=== PATIENT | male | born 1950 | race Caucasian/White ===

== ENCOUNTER 2018-12-31 05:39 | Inpatient (IN) | payer MEDICARE, BC ==
[~2018-12-31] VITALS: Ht 157.5 cm; Wt 86.6 kg
[2018-12-31] VITALS (27 sets, daily range): BP systolic 99–154; BP diastolic 49–107; PULSE 56–68; RESP 8–19; Ht 157.5 cm; Wt 86.6 kg
[2018-12-31] MEDS ORDERED: METO-335 PO (06:37)
[2018-12-31] MEDS ORDERED: ASPI-903 PO (06:37)
[2018-12-31] MEDS ORDERED: ATOR20TA38 PO (06:37)
[2018-12-31] MEDS ORDERED: METF-849 PO (06:39)
[2018-12-31] MEDS ORDERED: VERAPAMIL 5 MG INJ ONE (06:54)
[2018-12-31] MEDS ORDERED: NITROGLYCERIN (IC) 100 MCG/ML INJ ONE (06:54)
[2018-12-31] MEDS ORDERED: LIDOCAINE 1% (MDV) 20 ML INJ ONE (06:54)
[2018-12-31] MEDS ORDERED: IODIXANOL LOCM 100 ML BTL ONE ×2 (06:54→11:19)
[2018-12-31] MEDS ORDERED: HEPARIN 1000 UNITS/ML 10 ML INJ ONE (06:54)
[2018-12-31] MEDS ORDERED: MIDAZOLAM 1 MG/ML 2 ML INJ ONE (07:24)
[2018-12-31] MEDS ORDERED: BIVALIRUDIN 250MG /NS 50 ML 50 ML IVPB ONE ×2 (07:51→08:39)
[2018-12-31] MEDS ORDERED: ADENOSINE 30 ML ONE (07:54)
[2018-12-31] MEDS ORDERED: TICAGRELOR 90 MG TABLET ONE (08:08)
[2018-12-31] MEDS ORDERED: ASPIRIN 325 MG TAB ONE (08:09)
[2018-12-31] MEDS ORDERED: FENTAnyl 50 MCG/ML VIAL ONE (08:58)
[2018-12-31] MEDS ORDERED: ACETAMINOPHEN 325 MG TAB PO PRN (09:00)
--- NOTE | 2018-12-31 09:12 | OPR ---
Date/Time of Note Date/Time of Note DATE: 12/31/18 TIME: 09:03 Operative Report Procedure Date: Dec 31, 2018 Preoperative Diagnosis CAD, abnormal stress test and cardiac CTA Postoperative Diagnosis same, s/p PCI LAD Operation/Procedure Performed see details Surgeon see signature line Machine Finisher none Anesthesia Type: moderate sedation Estimated Blood Loss: minimal Transfusion none Specimen none Grafts/Implants none Complications none Procedure Description Procedure Date:12/31/2018 Financial Services Intern/surgeon: Bal Lowery MD. Procedures Performed: 1)Left heart catheterization with selective left and right coronary angiography. 2)iFR and FFR of the ostial/prox LAD 3)Balloon angioplasty and stenting of the ostial-prox LAD with a Synergy 3.0 x 12 and Synergy 3.0 x 8 stents. Pre-operative Diagnosis:PVCs, abnormal stress echo and cardiac CTA Post-operative Diagnosis:same s/p PCI of LAD Indications: 68 yo M with DM and smoking history who was referred for frequent PVCs. Stress echo showed abnormal septal motion at peak and cardiac CTA showed 80% ostial- prox LAD disease. Description of Procedure: After informed consent, the patient was brought to the cardiac catheterization lab. The procedure site was prepped and draped in usual manner. The patient was premedicated with versed 1 mg and fentanyl 50 mcg. 3 mL lidocaine was injected into the right wrist. Next using the posterior wall technique, the 6/5 montenegrin sheath was inserted into the right radial artery. Next using the JL3.5 and JR4, selective angiography of the left and right coronary arteries were obtained. The decision was made to proceed with iFR of the LAD. A 6 montenegrin JL 3.5 guide was advanced and engaged into the left coronary artery. After appropriate anticoagulation was given, the iFR angioplasty wire was normalized in the left main and advanced past the LAD lesion. Next the iFR was measured at 0.89, 0.90, 0.91. As there was discrepancy and borderline readings, the decision was made to give adenosine and check FFR. FFR was measured at 0.67. The decision was made to direct stent the lesion. Subsequently, the Synergy 3.0 x 12 stent was advanced to the lesion. Unfortunately there was significant motion of the catheter and stent with breathing and despite breath holding, the stent advanced forward during deployment and only part of the lesion was stented. Next the Synergy 3.0 x 8 stent was advanced and deployed overlapping with the first stent. Next the stent was post dilated with the 3.25 X 8 noncompliant balloon times 4 at a maximum of 12 gladys. Final angiography revealed GLENNY 3 flow, no edge dissection, and appropriate stent expansion. There was some haziness in the mid vessel several mm after the stent which upon review of diagnostic images was present. 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 Flow was unchanged at the end of the case, the pt was completely asymptomatic and there were no EKG changes. Next all equipment was removed and hemostasis was achieved by TR band. Findings: Anatomy/Hemodynamics: Overall slow flow in all vessels likely due to active smoking and DM Left main:normal LAD:ostial to prox 60% lesion followed by an aneurysmal segment Diagonal:small vessel with diffuse disease Circumflex:luminal irregularities Obtuse marginal:luminal irregularities RCA:proximal aneurysmal segment, otherwise 20-30% plaque PDA:luminal irregularities PLV: mid 50-60% in a smaller vessel Contrast used: 160 mL Fluoroscopy time:12.3 min Medications used: Versed 1 Fentanyl 50 Radial cocktail: heparin 3000 units, NTG 200mcg, verapamil 2.5mg Adenosine drip Angiomax Brilinta 180mg ASA 325mg Equipment used: 6 montenegrin JL 3.5 guide iFR angioplasty wire Synergy 3.0 x 12 and 3.0 x 8 overlapping drug eluting stents 3.25 x 8noncompliant balloon Estimated blood loss<10 mL. Specimen: none Grafts/implants: none Complications: none Assessment: CAD: s/p PCI of ostial-prox LAD due to positive iFR/FFR. Residual intermediate PL disease to be managed medically PVCs Smoker DM Plan: -ASA 81mg indefinitely -Brilinta at least 6 months, preferably longer as high risk territory -lipitor -metoprolol succ 25mg daily for PVCs BAL LOWERY Dec 31, 2018 09:12
[2018-12-31] MEDS: METOPROLOL (XL) 25 MG TAB PO SCH (09:45)
[2018-12-31] MEDS: SOD CHLORIDE 0.9% 1,000 ML IV SCH ×2 (10:53→22:00)
[2018-12-31] MEDS ORDERED: IOHEXOL 350MG/ML 50 ML BTL ONE (11:19)
[2018-12-31] MEDS: INSULIN ASPART [NOVOLOG] 3 ML PEN SC SCH ×3 (12:00→21:00)
[2018-12-31] MEDS ORDERED: GLUCAGON 1 MG INJ IM PRN (12:30)
[2018-12-31] MEDS ORDERED: GLUCOSE GEL 15 GRAM TUBE PO PRN ×2 (12:30)
[2018-12-31] MEDS ORDERED: GLUCOSE GEL 15 GRAM TUBE BUCCAL PRN (12:30)
[2018-12-31] MEDS ORDERED: DEXTROSE 50% 50 ML SYRINGE IV PRN ×2 (12:30)
[2018-12-31] MEDS: FAMOTIDINE 20 MG TAB PO SCH (12:41)
--- NOTE | 2018-12-31 16:30 | HP ---
DATE OF ADMISSION: 12/31/2018 CHIEF COMPLAINT: Coronary artery disease. HISTORY OF PRESENT ILLNESS: This is a 68-year-old male with past medical history of hypertension, hi story of coronary artery disease who was brought in to [facility] to undergo cardia c catheterization. The patient had an abnormal stress test and cardiac CT angio which was done by ca rdiologist, Dr. Lowery. As a result, the patient was brought in, underwent cardiac catheterizati on and had PCI of his left anterior descending. Following the procedure, the patient was transferred to the intensive care unit for observation. Upon my evaluation, the patient at this time is currently stable. Denies any chest pain, fevers, chi lls, nausea, vomiting, no shortness of breath. PAST MEDICAL HISTORY: History of hypertension, history of coronary artery disease, prediabetes and d yslipidemia. ALLERGIES: No known drug allergies. FAMILY HISTORY: No family history of kidney disease. SOCIAL HISTORY: Does not drink, ____ or do drugs. PAST SURGICAL HISTORY: None. MEDICATIONS: Have been reviewed. PHYSICAL EXAMINATION: VITAL SIGNS: Blood pressure is 129/84, respirations 16, pulse 64, temperature 98.0. HEENT: Head is normocephalic. Pupils are reactive to light. NECK: Supple. HEART: Regular rate. LUNGS: Show diminished breath sounds at the base. ABDOMEN: Soft, nontender to palpation without rebound or guarding. EXTREMITIES: Negative other than cyanosis, no edema. DERMATOLOGIC: No rashes. MUSCULOSKELETAL: No joint effusion. NEUROLOGIC: No focal deficits. MEDICATIONS: Have been reviewed. LABORATORY DATA: Has been reviewed. ASSESSMENT AND PLAN: This is a 68-year-old male who presents with coronary artery disease. The gustavo ent is status post percutaneous coronary intervention to left anterior descending. PLAN: 1. The patient to continue current medical management. Continue Brilinta, aspirin. Continue Lipito r. Continue metoprolol. We will follow up with cardiology for recommendations. 2. Hypertension. Continue current blood pressure regimen. 3. History of diabetes. The patient is currently on metformin. We will resume. Continue insulin s liding scale. 4. Dyslipidemia. Continue statin therapy. 5. Gastrointestinal and deep vein thrombosis prophylaxis. 6. History of tobacco use. Will give nicotine patch as needed. Please note, I spent an additional 30 minutes of [id number] time with this patient, discussing adva nce directives, code status. The patient is full code. Dictated By: BRANDON BLAKE DO NR/REJI Conf#: [id number] DID#: [id number] CC: ANGELICA LOWERY MD;*EndCC*
[2018-12-31] MEDS ORDERED: ATORVASTATIN 20 MG TAB PO SCH (21:00)
[2018-12-31] MEDS: TICAGRELOR 90 MG TABLET PO SCH (21:18)
[2019-01-01] VITALS (11 sets, daily range): BP systolic 94–138; BP diastolic 53–98; PULSE 60–73; RESP 13–19
[2019-01-01] MEDS ORDERED: ACCUCHECK AT 2AM (Patients on SS coverage) XX SCH (02:00)
[2019-01-01] MEDS: METOPROLOL (XL) 25 MG TAB PO SCH (08:14)
[2019-01-01] MEDS: FAMOTIDINE 20 MG TAB PO SCH (08:15)
[2019-01-01] MEDS: TICAGRELOR 90 MG TABLET PO SCH (08:19)
[2019-01-01] MEDS: INSULIN ASPART [NOVOLOG] 3 ML PEN SC SCH (08:26)
[2019-01-01] MEDS ORDERED: ASPIRIN 81 MG TAB PO SCH (09:00)
--- NOTE | 2019-01-01 09:05 | CONS ---
Assessment/Plan Assessment/Plan Hospital Course (Demo Recall) CAD: s/p PCI of ostial-prox LAD due to positive iFR/FFR. Residual intermediate PL disease to be managed medically. No symptoms. PVCs: improved with metoprolol Smoker: cessation strongly advised again DM -ok for d/c. He has all prescriptions -ASA 81mg indefinitely -Brilinta at least 6 months, preferably longer as high risk territory (I have given him a prescription) -lipitor 40mg -metoprolol succ 25mg PO BID Consultation Date/Type/Reason Admit Date/Time Dec 31, 2018 at 08:58 Initial Consult Date Type of Consult Cardiology Date/Time of Note DATE: 01/01/19 TIME: 08:59 24 HR Interval Summary Free Text/Dictation No events overnight. No complaints. No chest pain or SOB. PVCs improved after metoprolol but then slightly increased overnight and a few couplets. Exam/Review of Systems Vital Signs Vitals Vital Signs Date Temp Pulse Resp B/P (MAP) Pulse Ox O2 O2 Flow FiO2 Time Delivery Rate 01/01/19 67 14 97/76 (83) 100 Room Air 06:00 01/01/19 97.8 04:00 Intake and Output 12/31/18 12/31/18 01/01/19 1515:00 23:00 07:00 IntakeIntake Total 300 ml 750 ml 0 ml BalanceBalance 300 ml 750 ml 0 ml Exam Constitutional: alert, oriented Psych: no complaints, nl mood/affect Head: normocephalic, atraumatic Neck: supple; No jvd Respiratory: clear to auscultation; No crackles/rales Cardiovascular: regular rate and rhythm; No edema Gastrointestinal: soft, non-tender Neurological: nl mental status, nl speech Labs Result Diagram: 01/01/19 0458 01/01/19 0458 Results 24hrs Laboratory Tests Test 12/31/18 12:32 12/31/18 17:13 12/31/18 21:16 01/01/19 04:58 Bedside Glucose 132 104 195 White Blood Count 5.8 Red Blood Count 5.33 Hemoglobin 16.6 Hematocrit 49.1 Mean Corpuscular Volume 92.1 Mean Corpuscular 31.1 Hemoglobin Mean Corpuscular 33.8 Hemoglobin Concent Red Cell Distribution 12.1 Width Platelet Count 161 Mean Platelet Volume 11.1 H Immature Granulocytes % 0.500 H Neutrophils % 53.7 Lymphocytes % 31.8 Monocytes % 7.6 Eosinophils % 5.5 Basophils % 0.9 Nucleated Red Blood 0.0 Cells % Immature Granulocytes # 0.030 Neutrophils # 3.1 Lymphocytes # 1.9 Monocytes # 0.4 Eosinophils # 0.3 Basophils # 0.1 Nucleated Red Blood 0.0 Cells # Sodium Level 142 Potassium Level 4.5 Chloride Level 108 Carbon Dioxide Level 25 Anion Gap 9 Blood Urea Nitrogen 15 Creatinine 0.83 Est Glomerular Filtrat > 60 Rate mL/min Glucose Level 118 Calcium Level 9.6 Phosphorus Level 3.5 Magnesium Level 2.1 Test 01/01/19 08:03 Bedside Glucose 161 Medications Medications Current Medications Acetaminophen (Tylenol Tab) 650 mg Q4H PRN PO NON-CARDIAC PAIN LEVEL (1-3); Start 12/31/18 at 09:00 Metoprolol Succinate (Toprol Xl) 25 mg DAILY PO Last administered on 01/01/19at 08:14; Admin Dose 25 MG; Start 12/31/18 at 09:30 Aspirin (Aspirin) 81 mg DAILY PO Last administered on 01/01/19at 08:14; Admin Dose 81 MG; Start 01/01/19 at 09:00 Ticagrelor (Brilinta) 90 mg BID PO Last administered on 01/01/19 08:19; Admin Dose 90 MG; Start 12/31/18 at 21:00 Atorvastatin Calcium (Lipitor) 40 mg HS PO Last administered on 12/31/18at 21:13; Admin Dose 40 MG; Start 12/31/18 at 21:00 Famotidine (Pepcid) 20 mg DAILY PO Last administered on 01/01/19at 08:15; Admin Dose 20 MG; Start 12/31/18 at 12:00 Insulin Aspart (Novolog Insulin Pen) NOVOLOG *MILD* ALGORITHM WITH MEALS BEDTIME SC Last administered on 01/01/19at 08:26; Admin Dose 1 UNIT; Start 12/31/18 at 12:00 Miscellaneous Information 1 ea NOTE XX ; Start 12/31/18 at 12:30 Glucose (Glutose) 15 gm Q15M PRN PO DECREASED GLUCOSE; Start 12/31/18 at 12:30 Glucose (Glutose) 22.5 gm Q15M PRN PO DECREASED GLUCOSE; Start 12/31/18 at 12:30 Dextrose (D50w Syringe) 25 ml Q15M PRN IV DECREASED GLUCOSE; Start 12/31/18 at 12:30 Dextrose (D50w Syringe) 50 ml Q15M PRN IV DECREASED GLUCOSE; Start 12/31/18 at 12:30 Glucagon (Glucagen) 1 mg Q15M PRN IM DECREASED GLUCOSE; Start 12/31/18 at 12:30 Glucose (Glutose) 15 gm Q15M PRN BUCCAL DECREASED GLUCOSE; Start 12/31/18 at 12:30 Diagnostic Test (Pha) (Accu-Chek) 1 02 XX ; Start 01/01/19 at 02:00 ANGELICA SOUZA Jan 01, 2019 09:05
[2019-01-01] MEDS ORDERED: TICA90TA PO (09:27)
[2019-01-01] MEDS ORDERED: ATOR20TA65 PO (09:27)
--- NOTE | 2019-01-02 13:35 | DS ---
Date/Time of Note Date/Time of Note DATE: 01/02/19 TIME: 13:32 Discharge Summary Admission/Discharge Info Admit Date/Time Dec 31, 2018 at 08:58 Discharge Date/Time Jan 01, 2019 at 10:17 Discharge Diagnosis cad htn DM Patient Condition: Good Consults cardiology Procedures cardiac cath Hospital Course his is a 68-year-old male with past medical history of hypertension, history of coronary artery disease who was brought in to [facility] to undergo cardiac catheterization. The patient had an abnormal stress test and cardiac CT angio which was done by hunting and fishing guide, Dr. Lowery. As a result, the patient was brought in, underwent cardiac catheterization and had PCI of his left anterior descending. Following the procedure, the patient was transferred to the intensive care unit for observation. Pt was continued on medical management, of Brilinta, aspirin, lipitor and mtp. Pt's BP was well maintained on currently BP meds. She was resumed on her oral hypoglycemics along with SSI to monitor blood sugar. She denied chest pain or shortness of breath and was discharged home. Home Meds Active Scripts Atorvastatin Calcium (Atorvastatin Calcium) 20 Mg Tablet, 40 MG PO HS for 90 Days, #90 TAB Prov:ANGELICA LOWERY 01/01/19 Ticagrelor* (Brilinta*) 90 Mg Tablet, 90 MG PO BID for 90 Days, #180 TAB Prov:ANGELICA LOWERY 01/01/19 Reported Medications Metformin* (Glucophage*) 500 Mg Tab, 250 MG PO WITH BREAKFAST, #30 TAB 12/31/18 Atorvastatin Calcium* (Atorvastatin Calcium*) 20 Mg Tablet, 20 MG PO QHS, #30 TAB 12/31/18 Aspirin* (Aspirin* Chew) 81 Mg Tab.chew, 81 MG PO DAILY, TAB.CHEW 12/31/18 Metoprolol Succinate* (Toprol XL*) 25 Mg Tab.sr.24h, 25 MG PO DAILY, #30 TAB 12/31/18 Follow-up Plan cardiology in 1 week Primary Care Provider Not On Staff Doctor Time spent on discharge: > 30 minutes AYANNA MIDDLETON MD Jan 02, 2019 13:35
== END 2019-01-01 10:17 | disposition home or self-care (01) | DRG 247 ==
LOC: CCL 05:39 → SDS 05:39 → CCL 08:57 → ICU 08:58
PROVIDERS: ADMIT Internal Medicine Interventional Cardiology; ATTEND Internal Medicine Interventional Cardiology
PROC: 4A033BC Measurement of Arterial Pressure, Coronary, Percutaneous Approach (ICD-10-PCS; 2018-12-31)
PROC: 027035Z Dilation of Coronary Artery, One Artery with Two Drug-eluting Intraluminal Devices, Percutaneous Approach (ICD-10-PCS; principal; 2018-12-31 07:30)
PROC: 4A023N7 Measurement of Cardiac Sampling and Pressure, Left Heart, Percutaneous Approach (ICD-10-PCS; 2018-12-31 07:30)
PROC: B211YZZ Fluoroscopy of Multiple Coronary Arteries using Other Contrast (ICD-10-PCS; 2018-12-31 07:30)
DX: I25.10 Atherosclerotic heart disease of native coronary artery without angina pectoris (principal); I10 Essential (primary) hypertension; E78.5 Hyperlipidemia, unspecified; E11.9 Type 2 diabetes mellitus without complications; I49.3 Ventricular premature depolarization; Z79.84 Long term (current) use of oral hypoglycemic drugs; Z87.891 Personal history of nicotine dependence
CPT/HCPCS: 80048; 82962; 83735; 84100; 85025; 85610; 85730; 87081; 93454; 93571; C1725; C1874; C1887; C9600; J0153; J0583; J1644; J1815; J2250; J3010; Q9967